=== PATIENT | female | born 1945 | race Caucasian/White ===

== ENCOUNTER 2020-08-27 09:01 | Emergency (ER) | payer MEDICARE, OTHER ==
[~2020-08-27] VITALS: Ht 154.9 cm; Wt 67.0 kg
[2020-08-27] MEDS ORDERED: SODIUM CHLORIDE 0.9% 500 ML IV ONE (10:00)
[2020-08-27 10:08] LABS: BASOPHILS % 0.8 % (0.0-2.0); HEMATOCRIT. 40.4 % (36.0-48.0); HEMOGLOBIN. 13.5 g/dL (12.0-16.0); LYMPHOCYTES % 18.3 % (20.0-50.0); MEAN CORPUSCULAR HEMOGLOBIN 28.4 pg (28.0-32.0); MEAN CORPUSCULAR VOLUME 84.9 fL (81.0-99.0); MEAN PLATELET VOLUME 9.9 fl (7.4-10.4); MONOCYTES % 8.3 % (2.0-8.0); NEUTROPHILS % 71.6 % (40.0-76.0); PLATELET 239 x1000/uL (130-400); RED BLOOD CELL COUNT 4.76 mill/uL (4.2-5.4); RED CELL DISTRIBUTION WIDTH 13.4 % (11.6-14.6)
[2020-08-27 10:15] LABS: CHLORIDE 101 mEq/L (98-107)
[2020-08-27 10:37] VITALS: BP 156/78
[2020-08-27 12:58] LABS: CLARITY URINE CLEAR (CLEAR); COLOR URINE YELLOW (YELLOW); KETONES URINE TRACE (NEGATIVE); LEUKOCYTE ESTERASE URINE NEGATIVE (NEGATIVE); NITRITE URINE NEGATIVE (NEGATIVE); OCCULT BLOOD URINE NEGATIVE (NEGATIVE); PH URINE 5.5 (4.5-8.0); PROTEIN URINE NEGATIVE (NEGATIVE); SPECIFIC GRAVITY URINE 1.038 (1.005-1.030); UROBILINOGEN URINE 0.2 E.U./dL (0.2-1.0)
[2020-08-27] MEDS ORDERED: NITR100C MT (13:35)
[2020-08-27] MEDS ORDERED: LACT10SO6 MT (13:36)
== END 2020-08-27 14:51 | disposition home or self-care (01) ==
LOC: ER 09:01
DX: E11.65 Type 2 diabetes mellitus with hyperglycemia (principal); K59.09 Other constipation; N39.0 Urinary tract infection, site not specified; J02.9 Acute pharyngitis, unspecified; R53.81 Other malaise; I10 Essential (primary) hypertension; E78.5 Hyperlipidemia, unspecified; Z79.4 Long term (current) use of insulin
CPT/HCPCS: 36415; 80053; 81003; 82962; 83690; 85025; 87077; 87086; 87186; 93005; 96360; 99283; J7030